=== PATIENT | male | born 1955 | race Caucasian/White ===

== ENCOUNTER → 2017-03-23 | Outpatient (CLI) | payer OTHER ==
[~2017-03-23] MED LIST: ASPIRIN325 MG PO; Aspirin Chewable PO; BENADRYL50 MG PO; ELIQUIS5 MG PO; PROTONIX40 MG PO; TAMBOCOR150 MG PO; TIAZAC360 MG PO
== END | disposition home or self-care (01) ==
LOC: CDC 10:57
DX: Z01.810 Encounter for preprocedural cardiovascular examination (principal); M65.331 Trigger finger, right middle finger; M65.341 Trigger finger, right ring finger; M79.644 Pain in right finger(s); R94.31 Abnormal electrocardiogram [ECG] [EKG]
CPT/HCPCS: 93000